=== PATIENT | female | born 2000 | race Two or more races ===

== ENCOUNTER 2025-04-13 02:32 | Inpatient (IN) | payer MEDICAID, OTHER ==
[2025-04-13] VITALS (7 sets, daily range): BP systolic 125–147; BP diastolic 78–93; PULSE 75–104; RESP 16–18; TEMP 97.7–98.7; O2SAT 91–97
[~2025-04-13] VITALS: Ht 172.7 cm; Wt 124.5 kg
--- NOTE | 2025-04-13 02:52 | ED.PDOC ---
GI ASSESSMENT HPI Comments 25-year-old female who came to ER due to abdominal pain. Patient denies any medical problems or any history of abdominal surgery. States since 10:00 a.m. yesterday, epigastric/right upper quadrant abdominal pain with the episodes nausea and vomiting. Patient admits that she started taking Ozempic recently Chief Complaint: Abdominal Pain Time Seen by MD: 02:52 Reviewed Notes: Nurses Notes Allergies: Coded Allergies: NO KNOWN ALLERGIES (Unverified , 04/13/25) Information Source: Patient Mode of Arrival: Ambulatory Timing: Hours Duration: Since onset Past Medical History PAST MEDICAL HISTORY: Denies Surgical History: Denies all surgeries LEGAL INSTRUMENTS EXAMINER History: Denies all LEGAL INSTRUMENTS EXAMINER Hx Family History Family History: Reviewed,noncontributory to illness Social History Smoker: Non-Smoker Alcohol: Denies ETOH Use Drugs: Denies Drug Use Lives In: Home Was a procedure done? Was a procedure done?: No GI differential Dx Differential Diagnosis: Bowel Obstruction, Cholangitis, Cholecystitis, Diverticular disease, Gastritis/PUD, Gastroenteritis, Hepatitis, Inflammatory BD, Pancreatitis, UTI, Urolithiasis X-Ray, Labs, Meds, VS Vital Signs Date Time Temp Pulse Resp B/P (MAP) Pulse Ox O2 Delivery O2 Flow Rate FiO2 04/13/25 02:32 98.2 97 18 149/98 95 98.2 Lab Test 04/13/25 02:46 Range/Units White Blood Count 10.8 4.4-10.8 10^3/uL Red Blood Count 5.80 H 4.0-5.20 10^6/uL Hemoglobin 15.1 12.2-16.2 g/dL Hematocrit 43.7 36.0-46.0 % Mean Corpuscular Volume 75.4 L 80.0-100.0 fL Mean Corpuscular Hemoglobin 26.0 L 28.0-32.0 pg Mean Corpuscular Hemoglobin Concent 34.5 32.0-36.0 g/dL Red Cell Distribution Width 14.4 H 11.8-14.3 % Platelet Count 426 140-450 10^3/uL Mean Platelet Volume 7.5 6.9-10.8 fL Neutrophils (%) (Auto) 75.1 37.0-80.0 % Lymphocytes (%) (Auto) 20.3 10.0-50.0 % Monocytes (%) (Auto) 4.2 0.0-12.0 % Eosinophils (%) (Auto) 0.1 0.0-7.0 % Basophils (%) (Auto) 0.3 0.0-2.0 % Neutrophils # (Auto) 8.1 1.6-8.6 10 ^3/uL Lymphocytes # (Auto) 2.2 0.4-5.4 10 ^3/uL Monocytes # (Auto) 0.5 0-1.3 10 ^3/uL Eosinophils # (Auto) 0 0-0.8 10 ^3/uL Basophils # (Auto) 0 0-0.2 10 ^3/uL Nucleated Red Blood Cells 0.1 % Sodium Level 140 136-145 mmol/L Potassium Level 3.9 3.5-5.1 mmol/L Chloride Level 103 98-107 mmol/L Carbon Dioxide Level 26 20-31 mmol/L Anion Gap 11 5-15 Blood Urea Nitrogen < 5 L 9-23 mg/dL Creatinine 0.79 0.550-1.02 mg/dL Glomerular Filtration Rate Calc 107 >90 mL/min BUN/Creatinine Ratio 6.3 L 10.0-20.0 Serum Glucose 96 74-106 mg/dL Calcium Level 9.7 8.7-10.4 mg/dL Total Bilirubin 2.2 H 0.2-1.0 mg/dL Aspartate Amino Transferase (AST) 335 H 13-40 U/L Alanine Aminotransferase (ALT) 374 H 7-40 U/L Alkaline Phosphatase 88 46-116 U/L Total Protein 7.9 5.7-8.2 g/dL Albumin 4.8 3.2-4.8 g/dL Lipase > 3500 H 12-53 U/L Exam: CT CT AB PEL WO CON-NO ORAL OR IV History: Right upper quadrant abdominal pain Comparison Study: None Technique: Multidetector spiral CT of the abdomen was performed from lung bases to pubic symphysis. Imaging was performed without IV contrast. Axial, coronal and sagittal multiplanar reformats were obtained from the axial data set by the technologist. Radiation Dose : 1. Abdomen/Pelvis: CTDIvol 26.17 mGy, DLP 1872.2 mGy*cm. Findings: Evaluation of solid organs is limited due to lack of intravenous contrast use. Lung Bases: No acute or significant lung base finding. Normal heart size. No pleural or pericardial effusion. Liver: The liver is enlarged, measuring 20.6 cm in craniocaudal dimension. Hepatic steatosis. No focal lesions. Gallbladder and Biliary Tree: Cholelithiasis and moderate gallbladder distention . Spleen: Unremarkable Pancreas: The pancreas is grossly normal in appearance. Adrenal Glands: Unremarkable Kidneys: Kidneys are grossly normal without calculi or hydronephrosis. Bladder: Grossly unremarkable for degree of distention. Bowel: Small sliding-type hiatal hernia. The stomach is grossly normal in appearance. Small bowel and colon are normal in caliber and distribution. The appendix is normal. Ascites: Absent Lymphadenopathy: No mesenteric, retroperitoneal or periportal lymphadenopathy. Abdominal Wall and Mesentery: Unremarkable. Vasculature: The visualized abdominal aorta is normal in size and caliber. Tala luation of abdominal and pelvic vessels is limited due to lack of intravenous contrast. Pelvic Organs: Unremarkable Musculoskeletal: No aggressive focal bony lesions, acute fractures or dislocation. IMPRESSION: 1. Cholelithiasis and moderate gallbladder distention. 2. Hepatomegaly and hepatic steatosis. Radiation optimization: All CT scans at this facility use at least one of these dose optimization techniques: automated exposure control mA and/or kV adjustment per patient size (includes targeted exams where dose is matched to clinical indication) or iterative reconstruction. Time of 1ST Reevaluation: 02:49 Reevaluation 1ST: Unchanged Patient Education/Counseling: Need For Follow Up Family Education/Counseling: Need For Follow Up SEPSIS Sepsis Screen Date sepsis recognized/suspect: Apr 13, 2025 Time Sepsis recognized/suspect: 0232 Recent Procedure: No On Antibiotic Therapy: No Respiratory Rate >20: No Heart Rate >90: Yes Temp<36 C (96.8 F) or >38.3 C: No SBP <90 or MAP <65 mmHG: No New Acute Mental Status Change: No Is the patient on CPAP, BIPAP,: No Physician Orders Ct Ab Pel Wo Con-No Oral Or Iv (04/13/25 02:42) Sodium Chloride 0.9% (04/13/25 04:15) Sodium Chloride 0.9% (04/13/25 04:15) Npo Except Ice Chips (04/13/25 04:06) Saline Lock (04/13/25 04:06) Npo (Nothing By Mouth) Diet (04/13/25 Breakfast) Ondansetron Hcl (Zofran) (04/13/25 04:15) Ketorolac Injection (Toradol Injection) (04/13/25 04:15) Vital Signs Date Time Temp Pulse Resp B/P (MAP) Pulse Ox O2 Delivery O2 Flow Rate FiO2 04/13/25 02:32 98.2 97 18 149/98 95 98.2 Laboratory Tests Test 04/13/25 02:46 White Blood Count 10.8 10^3/uL (4.4-10.8) Departure 1 Departure Time of Disposition: 04:08 Impression: Primary Impression: Acute pancreatitis Disposition: ADMITTED INPATIENT Condition: Stable Comments IV FLUIDS AND ANALGESICS ADMINISTERED IN THE ED PATIENT KEPT NPO PATIENT ADMITTED TO HOSPITALIST SERVICE FOR FURTHER TREATMENT, EVALUATION AND MONITORING. Extensive evaluation was performed in attempt to identify or rule out: (See differential diagnosis section) The following tests were ordered, and results were reviewed by me and discussed with patient: (See diagnostic results section) Decision regarding hospitalization or escalation of hospital level of care: Risk and benefits of admission for further treatment of patient's condition was considered. Due to patient's current clinical condition, high risk of decline and poor outcome if discharged and need for further inpatient management and monitoring, patient will be admitted to the hospital. Discussed with patient. Critical Care Note Critical Care Time?: No Stability Stability form required: No Heart Score Heart Score: Heart Score Response (Comments) Value History N/A 0 EKG N/A 0 Age N/A 0 Risk Factors N/A 0 Troponin N/A 0 Total 0 I personally scribed for KEO SPARROW MD ([email or web address]) on 04/13/25 at 02:52. Electronically submitted by Suleman Hernandez ([email or web address]). I personally scribed for KEO SPARROW MD ([email or web address]) on 04/13/25 at 03:42. Electronically submitted by Suleman Hernandez ([employer]). KEO SPARROW MD Apr 13, 2025 02:52
[2025-04-13 03:04] LABS: Hemoglobin 15.1 g/dL (12.2-16.2); Nucleated Red Blood Cells % 0.1 %
[2025-04-13 03:06] LABS: Hematocrit 43.7 % (36.0-46.0); Mean Corpuscular Hemoglobin 26.0 pg (28.0-32.0); Mean Corpuscular Volume 75.4 fL (80.0-100.0)
[2025-04-13 03:22] LABS: Alkaline Phosphatase 88 U/L (46-116); Anion Gap 11 (5-15); Calcium 9.7 mg/dL (8.7-10.4); Carbon Dioxide 26 mmol/L (20-31); Chloride 103 mmol/L (98-107); Glucose 96 mg/dL (74-106); Potassium 3.9 mmol/L (3.5-5.1); Sodium 140 mmol/L (136-145); Total Protein 7.9 g/dL (5.7-8.2)
[2025-04-13 03:30] LABS: Alanine Aminotransferase 374 U/L (7-40); Albumin 4.8 g/dL (3.2-4.8); BUN/Creatinine Ratio 6.3 (10.0-20.0); Bilirubin, Total 2.2 mg/dL (0.2-1.0); Blood Urea Nitrogen < 5 mg/dL (9-23); Lipase > 3500 U/L (12-53)
--- NOTE | 2025-04-13 03:33 | DVH ---
Exam: CT CT AB PEL WO CON-NO ORAL OR IV History: Right upper quadrant abdominal pain Comparison Study: None Technique: Multidetector spiral CT of the abdomen was performed from lung bases to pubic symphysis. I maging was performed without IV contrast. Axial, coronal and sagittal multiplanar reformats were obta ined from the axial data set by the technologist. Radiation Dose : 1. Abdomen/Pelvis: CTDIvol 26.17 mGy, DLP 1872.2 mGy*cm. Findings: Evaluation of solid organs is limited due to lack of intravenous contrast use. Lung Bases: No acute or significant lung base finding. Normal heart size. No pleural or pericardial effusion. Liver: The liver is enlarged, measuring 20.6 cm in craniocaudal dimension. Hepatic steatosis. No foca l lesions. Gallbladder and Biliary Tree: Cholelithiasis and moderate gallbladder distention. Spleen: Unremarkable Pancreas: The pancreas is grossly normal in appearance. Adrenal Glands: Unremarkable Kidneys: Kidneys are grossly normal without calculi or hydronephrosis. Bladder: Grossly unremarkable for degree of distention. Bowel: Small sliding-type hiatal hernia. The stomach is grossly normal in appearance. Small bowel and colon are normal in caliber and distribution. The appendix is normal. Ascites: Absent Lymphadenopathy: No mesenteric, retroperitoneal or periportal lymphadenopathy. Abdominal Wall and Mesentery: Unremarkable. Vasculature: The visualized abdominal aorta is normal in size and caliber. Evaluation of abdominal a nd pelvic vessels is limited due to lack of intravenous contrast. Pelvic Organs: Unremarkable Musculoskeletal: No aggressive focal bony lesions, acute fractures or dislocation. IMPRESSION: 1. Cholelithiasis and moderate gallbladder distention. 2. Hepatomegaly and hepatic steatosis. Radiation optimization: All CT scans at this facility use at least one of these dose optimization jeevan hniques: automated exposure control mA and/or kV adjustment per patient size (includes targeted exam s where dose is matched to clinical indication) or iterative reconstruction.
[2025-04-13] MEDS: SODIUM CHLORIDE 0.9% 1,000 ML IV ONE ×2 (04:15→10:20)
[2025-04-13] MEDS: ONDANSETRON HCL 4 MG/2 ML VIAL IV ONE (04:20)
[2025-04-13] MEDS: KETOROLAC TROMETH 30 MG/ML 1ML VIAL IV ONE (04:30)
--- NOTE | 2025-04-13 05:16 | DVHHPRES ---
History of Present Illness Resident Creating Document: OTF BRITO RESIDENT History of Present Illness Yfn Buck is a 25 year old female with no significtant past medical history came to the ER with chief complaints of diffuse abdominal pain mostly in the epigastric region which is 10/10 in intensity, radiating to the left shoulder, relieved with leaning forward, aggravated on lying flat associated with sweating, nausea, vomiting since yesterday morning. Patient states that she has intermittent pain since 2-3 months, associated with vomiting since 1 month. [place]en [place] states she has been taking Ozempic for the last year. Patient states that she takes omeprazole for heartburn. Patient denies any chest pain, shortness of breath, dysuria, diarrhea, constipation, fever, chills. Patient on arrival had hypertension, and elevated lipase levels. Patient is admitted for further management. Surgical history: Denies Family history: Reviewed noncontributory Social history: Denies smoking, drinking, drug use Lives with: Family PCP: Dr. Frank Review of Systems Constitutional: Yes: Sweats; No: Fever, Chills, Weakness, Malaise, Other Eyes: No: Pain, Vision change, Conjunctivae inflammation, Eyelid inflammation, Other, Redness ENT: No: Ear pain, Ear discharge, Nose pain, Nose discharge, Nose congestion, Mouth pain, Mouth swelling, Throat pain, Throat swelling, Other Respiratory: No: Cough, Dry, Shortness of breath, SOB with excertion, Wheezing, Hemoptysis, Pleuritic Pain, Sputum, Wheezing, Other Cardiovascular: No: Chest Pain, Palpitations, Orthopnea, Paroxysmal Noc. Dyspnea, Edema, Lt Headedness, Other Gastrointestinal: Nausea, Vomiting, Abdominal Pain; No: Diarrhea, Constipation, Melena, Hematochezia, Other Genitourinary: No Dysuria, No Frequency, No Incontinence, No Hematuria, No Retention, No Other Musculoskeletal: No: other, neck pain, shoulder pain, arm pain, back pain, hand pain, leg pain, foot pain Skin: No: Rash, Lesions, Jaundice, Bruising, Other Neurological: No: Weakness, Numbness, Incoordination, Change in speech, Confusi on, Seizures, Other Allergies: Coded Allergies: NO KNOWN ALLERGIES (Unverified , 04/13/25) Medications Current Medications Medications Dose Ordered Sig/Humza Route Start Time Stop Time Status Last Admin Dose Admin Ondansetron HCl 4 mg Q4HP PRN IV 04/13/25 04:45 Morphine Sulfate 2 mg Q4HPRN PRN IV 04/13/25 04:45 Exam Vital Signs Vital Signs Date Time Temp Pulse Resp B/P (MAP) Pulse Ox O2 Delivery O2 Flow Rate FiO2 04/13/25 04:40 87 17 97 Room Air* 0 21 04/13/25 04:39 97.3 108/75 (86) 97.3 Exam General Appearance: Alert, Oriented X3, Cooperative, No acute distress HEENT: Atraumatic, PERRLA, EOMI, Mucous membrane moist/pink Respiratory: Clear to auscultation, Normal air movement Cardiovascular: Regular rate, Normal S1, Normal S2, No murmurs, no chest wall tenderness Abdominal: Diffuse abdominal pain mostly in the epigastric region, negative Kang sign Extremities: No clubbing, No cyanosis, No edema, Normal pulses, No tenderness/swelling Skin: No rashes, No breakdown, No significant lesion Neuro: Normal gait, Normal speech, Strength at 5/5 X4 ext, Normal tone, Sensation intact, Cranial nerves 3-12 NL, Reflexes 2+ Psych/Mental Status: Mental status NL, Mood NL Labs/Xrays Labs Test 04/13/25 02:46 Range/Units White Blood Count 10.8 4.4-10.8 10^3/uL Red Blood Count 5.80 H 4.0-5.20 10^6/uL Hemoglobin 15.1 12.2-16.2 g/dL Hematocrit 43.7 36.0-46.0 % Mean Corpuscular Volume 75.4 L 80.0-100.0 fL Mean Corpuscular Hemoglobin 26.0 L 28.0-32.0 pg Mean Corpuscular Hemoglobin Concent 34.5 32.0-36.0 g/dL Red Cell Distribution Width 14.4 H 11.8-14.3 % Platelet Count 426 140-450 10^3/uL Mean Platelet Volume 7.5 6.9-10.8 fL Neutrophils (%) (Auto) 75.1 37.0-80.0 % Lymphocytes (%) (Auto) 20.3 10.0-50.0 % Monocytes (%) (Auto) 4.2 0.0-12.0 % Eosinophils (%) (Auto) 0.1 0.0-7.0 % Basophils (%) (Auto) 0.3 0.0-2.0 % Neutrophils # (Auto) 8.1 1.6-8.6 10 ^3/uL Lymphocytes # (Auto) 2.2 0.4-5.4 10 ^3/uL Monocytes # (Auto) 0.5 0-1.3 10 ^3/uL Eosinophils # (Auto) 0 0-0.8 10 ^3/uL Basophils # (Auto) 0 0-0.2 10 ^3/uL Nucleated Red Blood Cells 0.1 % Sodium Level 140 136-145 mmol/L Potassium Level 3.9 3.5-5.1 mmol/L Chloride Level 103 98-107 mmol/L Carbon Dioxide Level 26 20-31 mmol/L Anion Gap 11 5-15 Blood Urea Nitrogen < 5 L 9-23 mg/dL Creatinine 0.79 0.550-1.02 mg/dL Glomerular Filtration Rate Calc 107 >90 mL/min BUN/Creatinine Ratio 6.3 L 10.0-20.0 Serum Glucose 96 74-106 mg/dL Calcium Level 9.7 8.7-10.4 mg/dL Total Bilirubin 2.2 H 0.2-1.0 mg/dL Aspartate Amino Transferase (AST) 335 H 13-40 U/L Alanine Aminotransferase (ALT) 374 H 7-40 U/L Alkaline Phosphatase 88 46-116 U/L Total Protein 7.9 5.7-8.2 g/dL Albumin 4.8 3.2-4.8 g/dL Lipase > 3500 H 12-53 U/L SEPSIS Sepsis Screen Date sepsis recognized/suspect: Apr 13, 2025 Time Sepsis recognized/suspect: 044 Recent Procedure: No On Antibiotic Therapy: No Respiratory Rate >20: No Heart Rate >90: No Temp<36 C (96.8 F) or >38.3 C: No SBP <90 or MAP <65 mmHG: No New Acute Mental Status Change: No Is the patient on CPAP, BIPAP,: No Physician Orders Ct Ab Pel Wo Con-No Oral Or Iv (04/13/25 02:42) Sodium Chloride 0.9% (04/13/25 04:15) Npo Except Ice Chips (04/13/25 04:06) Saline Lock (04/13/25 04:06) Npo (Nothing By Mouth) Diet (04/13/25 Breakfast) Urinalysis (04/13/25 04:08) Test, Urine (04/13/25 04:08) Admit (04/13/25 04:39) Allergies (04/13/25 04:39) Code Status (04/13/25 04:39) Ondansetron Hcl (Zofran) (04/13/25 04:45) Condition: Serious (04/13/25 04:39) Bedrest With Bathroom Privileg (04/13/25 04:39) Morphine Sulfate Injection (04/13/25 04:45) Drug Screen (04/13/25 04:58) PTPTT (04/13/25 04:59) Vital Signs Date Time Temp Pulse Resp B/P (MAP) Pulse Ox O2 Delivery O2 Flow Rate FiO2 04/13/25 04:40 87 17 97 Room Air* 0 21 04/13/25 04:39 97.3 87 17 108/75 (86) 97 97.3 04/13/25 02:32 98.2 97 18 149/98 95 98.2 Laboratory Tests Test 04/13/25 02:46 White Blood Count 10.8 10^3/uL (4.4-10.8) Medications Medications Dose Ordered Sig/Humza Route Start Time Stop Time Status Last Admin Dose Admin Ketorolac Tromethamine 15 mg ONCE ONCE IV 04/13/25 04:15 04/13/25 04:16 DC 04/13/25 04:30 15 MG Ondansetron HCl 4 mg ONCE ONCE IV 04/13/25 04:15 04/13/25 04:16 DC 04/13/25 04:20 4 MG Sodium Chloride 1,000 ml @ 2,000 mls/hr Q30M ONCE IV 04/13/25 04:15 04/13/25 04:44 DC 04/13/25 04:15 2,000 MLS/HR Assessment/Plan Assessment/Plan Assessment and plan # Intractable abdominal pain due to acute pancreatitis # cholelithiasis # hepatic steatosis # hepatomegaly # hyperbilirubinemia with transaminitis - CT abdomen showed Cholelithiasis and moderate gallbladder distention. Hepatomegaly and hepatic steatosis. - IV fluids - IV morphine - omeprazole - elevated lipase levels - liver ultrasound ordered, pending - patient kept NPO ? Diabetes mellitus - patient taking Ozempic PPI prophylaxis: Protonix NPO Goals of care discussed with patient for 30 murmurs: Full code Case discussed with Dr. Jordan, Nurse Plan discussed with: Patient My Orders Orders - OTF BRITO RESIDENT Procedure Category Date Status Time Admit ADMIT 04/13/25 Transmitted 04:39 Allergies MARINO 04/13/25 In Process 04:39 Code Status CODE 04/13/25 Transmitted 04:39 Ondansetron Hcl PHA 04/13/25 In Process (Zofran) 04:45 Condition: Serious MARINO 04/13/25 In Process 04:39 Bedrest With Bathroom MARINO 04/13/25 In Process Privileg 04:39 Morphine Sulfate PHA 04/13/25 In Process Injection 04:45 Drug Screen LAB 04/13/25 Logged 04:58 PTPTT LAB 04/13/25 In Process 04:59 Date of Service: Apr 13, 2025 Billing Provider: ADRIÁN JORDAN MD Common Visit Codes: 33422-ZPMJJQS INP/OBS CARE (HIGH) Secondary Visit Codes: 11177-ZBBJTKIS CARE PLAN 30 MINUTES OTF BRITO Apr 13, 2025 05:16
[2025-04-13 05:33] LABS: INR 0.97 (0.9-1.15); Partial Thromboplastin Time 28.2 SEC (24.5-34.5); Prothrombin Time 10.3 sec (9.3-11.8)
[2025-04-13] MEDS: MORPHINE SULFATE INJ 2 MG/ml SYRG IV PRN (05:44)
[2025-04-13 06:48] LABS: Albumin 4.6 g/dL (3.2-4.8); Alkaline Phosphatase 85 U/L (46-116); Anion Gap 10 (5-15); BUN/Creatinine Ratio 6.7 (10.0-20.0); Calcium 9.3 mg/dL (8.7-10.4); Carbon Dioxide 27 mmol/L (20-31); Chloride 104 mmol/L (98-107); Cholesterol 197 mg/dL (< 200); HDL Cholesterol 54 mg/dL (40-59); Potassium 4.0 mmol/L (3.5-5.1); Sodium 141 mmol/L (136-145); Total Protein 7.5 g/dL (5.7-8.2)
[2025-04-13 06:51] LABS: INR 1.01 (0.9-1.15); Partial Thromboplastin Time 24.7 SEC (24.5-34.5); Prothrombin Time 10.7 sec (9.3-11.8)
[2025-04-13 06:53] LABS: Alanine Aminotransferase 419 U/L (7-40); Bilirubin, Total 2.6 mg/dL (0.2-1.0); Blood Urea Nitrogen 6 mg/dL (9-23); Glucose 124 mg/dL (74-106)
[2025-04-13 06:54] LABS: Triglycerides 171 mg/dL (< 150)
--- NOTE | 2025-04-13 09:16 | DVH ---
INDICATION: pancreatitis TECHNIQUE: Multiple real-time sonographic images of the abdomen were obtained. COMPARISON: None FINDINGS: The liver is heterogeneous in echogenicity. The liver measures 18cm. No intrahepatic bilia ry ductal dilatation is noted. The gallbladder wall measures 0.4 cm and is unremarkable. No gallstones or sludge is seen. The commo n duct measures 0.7 cm and is unremarkable. No pericholecystic fluid is noted. The right kidney measures 11cm. No hydronephrosis. The left kidney measures cm. No hydronephrosis. The pancreas is not well visualized due to obscuration from bowel gas. The visualized portions of the IVC and aorta are grossly unremarkable. IMPRESSION: Gallstones with gallbladder wall thickening. Acute cholecystitis can not be excluded. Free fluid around the pancreatic head. Pancreatitis not excluded. Hepatic steatosis/hepatomegaly.
[2025-04-13] MEDS: ONDANSETRON HCL 4 MG/2 ML VIAL IV PRN (10:11)
[2025-04-13] MEDS: PANTOPRAZOLE 40 MG/10 ML VIAL INJ IV SCH (10:19)
[2025-04-13] MEDS: ENOXAPARIN SOD 40 MG/0.4 ML SYRINGE SC SCH (10:20)
[2025-04-13 10:55] LABS: Opiate Scree,Urine Neg (NEGATIVE)
[2025-04-13 10:58] LABS: Amphetamine Screen, Urine Neg (NEGATIVE); Barbiturate Scree,Urine Neg (NEGATIVE); Benzodiazephine Screen, Urine Neg (NEGATIVE); Cannabinoid Screen, Urine Neg (NEGATIVE); Cocaine Screen, Urine Neg (NEGATIVE); Phencyclidine Screen, Urine Neg (NEGATIVE)
[2025-04-13 10:59] LABS: Urine Protein, UAD Negative (Negative)
[2025-04-13] MEDS: LACTATED RINGER'S 1,000 ML IV SCH (12:21)
--- NOTE | 2025-04-13 12:59 | DVHPNRES ---
Progress Note Date Seen: Apr 13, 2025 Resident Creating Document: SAGE POST RESIDENT Medical Necessity Reason Pt with a Central, PICC or Fol: No Subjective Review of Systems Yfn Buck is a 25-year-old female with no significant past medical history who came to the ER with chief complaint of diffuse abdominal pain since 1 day. Patient mentions that the pain was mostly in the epigastric area, 10/10 in intensity radiating to the left shoulder slightly reduced on sitting up and leaning forward. The patient describes the pain as soreness. She also complained of nausea and 3 episodes of vomiting yesterday. She states that she only drank water and could not keep anything down. She mentions she has had similar symptoms of abdominal pain and vomiting multiple times in the last 1 year, which she thought was just heartburn and would take omeprazole for it. Patient started taking Ozempic since 1 year. She denies any fever and chills. She has no history of gallstones or decreased appetite the last few months. Past medical history: Prediabetes Past surgical history: None Social & Personal history: Lives at home with brother Smoking: Denies Alcohol: Rare consumption Drugs: Denies Allergies: No known allergies Patient seen and examined at bedside. Patient is alert and oriented to time, place person and responding to all questions. Patient is in mild distress due to abdominal pain. Eyes: No Pain, No Vision change, No Conjunctivae inflammation, No Eyelid inflammation, No Redness ENT: No Ear pain, No Ear discharge, No Nose pain, No Nose discharge, No Nose congestion, No Mouth pain, No Mouth swelling, No Throat pain, No Throat swelling Cardiovascular: No Chest Pain, No Palpitations, No Orthopnea, No Paroxysmal No Dyspnea, No Edema, No Lt Headedness Respiratory: No Cough, No Dry, No Shortness of breath, No SOB with exertion, No Wheezing, No Hemoptysis, No Pleuritic Pain, No Sputum Gastrointestinal: Nausea, No Vomiting, Abdominal Pain, No Diarrhea, No Constipation, No Melena, No Hematochezia Genitourinary: No Dysuria, No Frequency, No Incontinence, No Hematuria, No Retention Objective vital signs Vital Sign Date Time Temp Pulse Resp B/P (MAP) Pulse Ox O2 Delivery O2 Flow Rate FiO2 04/13/25 12:24 100 18 139/85 04/13/25 09:37 98.7 94 98.7 04/13/25 04:40 Room Air* 0 21 medications Current Medications Medications Dose Ordered Sig/Humza Route Start Time Stop Time Status Last Admin Dose Admin Ondansetron HCl 4 mg Q4HP PRN IV 04/13/25 04:45 04/13/25 10:11 4 MG Morphine Sulfate 2 mg Q4HPRN PRN IV 04/13/25 04:45 04/13/25 10:12 2 MG Lactated Ringer's 1,000 ml @ 180 mls/hr Q5H34M IV 04/13/25 05:15 04/13/25 12:21 180 MLS/HR Pantoprazole Sodium 40 mg DAILY IV 04/13/25 10:00 04/13/25 10:19 40 MG Enoxaparin Sodium 40 mg DAILY SC 04/13/25 10:00 04/13/25 10:20 40 MG Ceftriaxone Sodium 50 ml @ 100 mls/hr DAILY@09 IV 04/14/25 09:00 UNV Metronidazole 100 ml @ 100 mls/hr Q8HR IV 04/13/25 14:00 UNV Examination General Appearance: Cooperative. Well developed. Well nourished. NAD. Patient is in mild distress due to abdominal pain. Head Exam: Normal inspection Neck Exam: Normal inspection. Non-tender. Normal alignment Pulmonary/Respiratory: Chest non-tender. Clear bilateral breath sounds, no crackles, no wheezing. Cardiovascular/Chest: Regular rate and rhythm. No murmurs. No JVD. Peripheral Pulses: 2+ Radial (R). 2+ Radial (L). 2+ Pedal (R). 2+ Pedal (L) Abdominal Exam: Normal bowel sounds. Soft. obese abdomen, no visible veins, d iffuse abdominal tenderness, more pronounced in the epigastric area, No hepatospenomegaly. No masses Ankle Exam: Negative ankle edema Lower extremities: Negative lower extremity edema Neuro/Mental Status: A&O x4. Coherent. Thoughts/Psych: Normal thought pattern. Appropriate mood and affect. Good judgement and insight Skin Exam: Normal inspection. Normal color. Warm. Dry laboratory and microbiology Laboratory Tests 04/13/25 06:04 04/13/25 02:46 Test 04/13/25 06:04 Range/Units Serum Glucose 124 H 74-106 mg/dL Labs and/or images reviewed: Labs reviewed by me, Image(s) reviewed by me Problem List/Assessment/Plan Problem List/Assessment/Plan Acute pancreatitis likely gallstone induced Gallbladder stones Biliary obstruction Hyperbilirubinemia with transaminitis Hepatic steatosis Hepatomegaly -CT abdomen pelvis showed cholelithiasis and moderate gallbladder distention, hepatomegaly and hepatic steatosis -Liver Ultrasound showed Gallstones with gallbladder wall thickening. Acute cholecystitis can not be excluded. Free fluid around the pancreatic head. Pancreatitis not excluded. Hepatic steatosis/hepatomegaly. -MRCP showed Extensive peripancreatic edema and stranding consistent with acute pancreatitis. The edema extends into the retroperitoneum, inferior abdomen, paracolic gutters. This is new since this morning examination. Cholelithiasis and pericholecystic edema. -keep NPO -lipase 3500 -GI consult -pain management -surgical consult -recommended lap cholecystectomy tomorrow am Prediabetes HbA1c 5.6 The patient is on Ozempic Educate patient about healthy food habits Obesity, class 3, BMI 40.8 Educated patient on the need for weight reduction with healthy lifestyle modifications and diet changes PUD prophylaxis: Protonix DVT prophylaxis: Lovenox Goals of care: Full code, discussed for >23 minutes Plan discussed with patient Plan discussed with Dr. Gonsales Plan discussed with: Patient My Orders My Orders Orders - SAGE POST RESIDENT Procedure Category Date Status Time Enoxaparin Sodium PHA 04/13/25 In Process (Lovenox) 10:00 Ceftriaxone 1gm/50ml PHA 04/14/25 Logged (Rocephin) 09:00 Metronidazole PHA 04/13/25 Logged 500mg/100ml (Flagyl 14:00 * Gi D[facility] [employer]ment [employer]oper CONS 04/13/25 Transmitted 10:58 * Surgical Consult CONS 04/13/25 Transmitted Mrcp Mri MRI 04/13/25 Taken 10:58 SAGE POST RESIDENT Apr 13, 2025 12:59 NORMA DIAZ RESIDENT Apr 13, 2025 16:27
--- NOTE | 2025-04-13 13:10 | DVH ---
PROCEDURE: MRI MRCP MRI Indication: acute cholecystitis/choledocholithiasis COMPARISON: 04/13/2025 TECHNIQUE: Multiplanar multisequence images of the abdomen are obtianed per MRCP protocol. FINDINGS: Adrenal glands unremarkable. Extensive peripancreatic edema extending into the retroperitoneum, lower abdomen, paracolic gutters. Cholelithiasis. Pericholecystic edema. No T2 hyperintense lesions within the liver. Normal caliber c ommon bile duct measuring 4 mm. No definitive choledocholithiasis identified. Pancreatic duct nonvis ualized, is nondilated. Hepatosplenomegaly. Kidneys demonstrate no hydronephrosis. Stomach is partially distended. Small bowel loops are normal in caliber. IMPRESSION: Extensive peripancreatic edema and stranding consistent with acute pancreatitis. The edema extends in to the retroperitoneum, inferior abdomen, paracolic gutters. This is new since this morning examinati on Cholelithiasis and pericholecystic edema. No evidence for choledocholithiasis. Normal caliber common bile duct.
[2025-04-13] MEDS: ACETAMINOPHEN 325 MG TAB PO SCH (13:30)
--- NOTE | 2025-04-13 13:39 | DVHINCON2 ---
Consultation - Surgical Date Seen: Apr 13, 2025 Referring Physician Reason for Consultation Gallstone pancreatitis History of Present Illness History of Present Illness Mrs. Buck is a 25-year-old female who presented to the ED with epigastric abdominal pain that radiates to the left side of the abdomen, that has been present since yesterday at 10:00 a.m.. States that she has had this pain before but never this bad. Her 1st episode was approximately 2 months ago and since then she has had approximately 5 episodes. States that the pain episodes are triggered by eating greasy spicy foods. Denies any associated nausea or vomiting. Denies acholic stools, fevers, chills, history of pancreatitis, changes in urinary or stooling habits. Patient is on Ozempic weekly last dose was on Wednesday. Past Medical/Surgical History Past Medical/Surgical History PMH morbid obesity, cholelithiasis PSH denies Family and Social History Family and Social History Noncontributory ETOH/T Ob/drugs denies Allergies and medications Allergies: Coded Allergies: NO KNOWN ALLERGIES (Unverified , 04/13/25) Review of systems Review of Systems: HEENT:Normal, CVS:Normal, RESPIRATORY:Normal, GI:Abnormal (See HPI), :Normal, MSK:Normal, NEURO:Normal Examination Vital signs Vital Signs Date Time Temp Pulse Resp B/P (MAP) Pulse Ox O2 Delivery O2 Flow Rate FiO2 04/13/25 12:58 97.7 104 18 139/85 (103) 91 97.7 04/13/25 04:40 Room Air* 0 21 Medications Current Medications Medications (Trade) Dose Ordered Sig/Humza Route PRN Reason Start Time Stop Time Status Last Admin Ondansetron HCl (Zofran) 4 mg Q4HP PRN IV NAUSEA / VOMITING 04/13/25 04:45 04/13/25 10:11 Morphine Sulfate 2 mg Q4HPRN PRN IV SEVERE PAIN (7-10 PAIN SCALE) 04/13/25 04:45 04/13/25 10:12 Lactated Ringer's 1,000 ml @ 180 mls/hr Q5H34M IV 04/13/25 05:15 04/13/25 12:21 Pantoprazole Sodium (Protonix) 40 mg DAILY IV 04/13/25 10:00 04/13/25 10:19 Enoxaparin Sodium (Lovenox) 40 mg DAILY SC 04/13/25 10:00 04/13/25 10:20 Ceftriaxone Sodium 50 ml @ 100 mls/hr DAILY@09 IV 04/14/25 09:00 UNV Metronidazole 100 ml @ 100 mls/hr Q8HR IV 04/13/25 14:00 UNV Laboratory Labs Test 04/13/25 06:04 04/13/25 05:15 04/13/25 02:46 Range/Units Prothrombin Time 10.7 9.3-11.8 sec Prothrombin Time INR 1.01 0.9-1.15 Activated Partial Thromboplast Time 24.7 24.5-34.5 SEC D-Dimer, Quantitative 1.05 H 0.0-0.49 mg/L FEU Sodium Level 141 136-145 mmol/L Potassium Level 4.0 3.5-5.1 mmol/L Chloride Level 104 98-107 mmol/L Carbon Dioxide Level 27 20-31 mmol/L Anion Gap 10 5-15 Blood Urea Nitrogen 6 L 9-23 mg/dL Creatinine 0.89 0.550-1.02 mg/dL Glomerular Filtration Rate Calc 93 >90 mL/min BUN/Creatinine Ratio 6.7 L 10.0-20.0 Serum Glucose 124 H 74-106 mg/dL Lactic Acid Level 1.6 0.4-2.0 mmol/L Calcium Level 9.3 8.7-10.4 mg/dL Total Bilirubin 2.6 H 0.2-1.0 mg/dL Direct Bilirubin 1.6 H <0.3 mg/dL Aspartate Amino Transferase (AST) 359 H 13-40 U/L Alanine Aminotransferase (ALT) 419 H 7-40 U/L Alkaline Phosphatase 85 46-116 U/L Troponin I High Sensitivity < 3 L </=34 ng/L B-Type Natriuretic Peptide 7.42 0-100 pg/mL Total Protein 7.5 5.7-8.2 g/dL Albumin 4.6 3.2-4.8 g/dL Triglycerides Level 171 H < 150 mg/dL Cholesterol Level 197 < 200 mg/dL LDL Cholesterol 127 H < 100 mg/dL HDL Cholesterol 54 40-59 mg/dL Beta HCG, Quantitative < 0.0 L 1.5-4.2 mIU/mL Plasma/Serum Blood Alcohol < 3.0 <10 mg/dL Urine Color Yellow Yellow Urine Clarity Clear Clear Urine pH 5.0 5.0-9.0 Urine Specific [place] 1.011 1.001-1.035 Urine Protein Negative Negative Urine Ketones Negative Negative Urine Blood Negative Negative /uL Urine Nitrite Negative Negative Urine Bilirubin 1+ H Negative Urine Urobilinogen Normal Negative mg/dL Urine Leukocyte Esterase Negative Negative /uL Urine RBC <1 0 - 4 /hpf Urine Microscopic WBC 1 0-5 /HPF Urine Squamous Epithelial Cells Few <5 /hpf Urine Bacteria None seen None Seen /hpf Urine Glucose Normal Normal mg/dL Urine Test Negative Negative Urine Opiates Screen Neg NEGATIVE Urine Fentanyl Screen Neg NEGATIVE Urine Barbiturates Screen Neg NEGATIVE Urine Phencyclidine Screen Neg NEGATIVE Urine Amphetamines Screen Neg NEGATIVE Urine Benzodiazepines Screen Neg NEGATIVE Urine Cocaine Screen Neg NEGATIVE Urine Cannabinoids Screen Neg NEGATIVE White Blood Count 10.8 4.4-10.8 10^3/uL Red Blood Count 5.80 H 4.0-5.20 10^6/uL Hemoglobin 15.1 12.2-16.2 g/dL Hematocrit 43.7 36.0-46.0 % Mean Corpuscular Volume 75.4 L 80.0-100.0 fL Mean Corpuscular Hemoglobin 26.0 L 28.0-32.0 pg Mean Corpuscular Hemoglobin Concent 34.5 32.0-36.0 g/dL Red Cell Distribution Width 14.4 H 11.8-14.3 % Platelet Count 426 140-450 10^3/uL Mean Platelet Volume 7.5 6.9-10.8 fL Neutrophils (%) (Auto) 75.1 37.0-80.0 % Lymphocytes (%) (Auto) 20.3 10.0-50.0 % Monocytes (%) (Auto) 4.2 0.0-12.0 % Eosinophils (%) (Auto) 0.1 0.0-7.0 % Basophils (%) (Auto) 0.3 0.0-2.0 % Neutrophils # (Auto) 8.1 1.6-8.6 10 ^3/uL Lymphocytes # (Auto) 2.2 0.4-5.4 10 ^3/uL Monocytes # (Auto) 0.5 0-1.3 10 ^3/uL Eosinophils # (Auto) 0 0-0.8 10 ^3/uL Basophils # (Auto) 0 0-0.2 10 ^3/uL Nucleated Red Blood Cells 0.1 % Hemoglobin A1c 5.6 <5.7 % A1C Lipase > 3500 H 12-53 U/L Examination: GENERAL:Normal, HEENT:Normal (No scleral icterus), ABDOMEN:Normal (Nondistended, no scars, no hernias, soft, depressible, exquisite epigastric tenderness, left upper quadrant tenderness, negative Kang's, no rebound, no guarding) Problem List/Assessment/Plan Problems: (1) Acute gallstone pancreatitis Assessment and Plan Ms. Buck is a 25-year-old female who presented with gallstone pancreatitis, as evidenced by lipase over 3500 with exquisite epigastric tenderness. CT was reviewed it shows distended gallbladder with the stones in the lumen. Ult rasound was reviewed and is shows gallstones within the gallbladder wall lumen, no gallbladder wall thickening, no pericholecystic fluid. Ultrasound also shows some fluid around the pancreas, which is due to the pancreatic inflammation. Presentation patient also had elevated total bilirubin level to 2.6, I ordered direct bilirubin level (still pending). MRCP was done and I did not see any choledocholithiasis, still waiting on the official radiology read. I discussed the findings with the patient and offered laparoscopic cholecystectomy, given that patients have a 80% risk of redeveloping pancreatitis within 2 months of being discharged from an episode of gallstone pancreatitis. I also discussed the possibility of performing a intraoperative cholangiogram if her bilirubin levels continue to increase by tomorrow morning's labs. Procedure, risks, benefits, complications and alternatives were discussed with the patient. Patient agrees with surgical plan. 1. Scheduled for laparoscopic cholecystectomy, possible open, possible intraoperative cholangiogram tomorrow a.m. 2. NPO at midnight 3. Aggressive fluid hydration due to pancreatitis, goal urine output is 1 to 2 mL per kg per hour 4. Pain control, added [place] 5 for moderate pain, [place] 10 for severe pain, Tylenol and ibuprofen for baseline pain control 5. Avoid morphine as this affects the sphincter of Oddi and can make pancreatitis worse 6. A.m. labs ordered: CBC, CMP, direct bilirubin level Plan discussed with Plan discussed with: Patient Visit Coding Surgery Date of Service if different f: Apr 13, 2025 Billing Provider: LINCOLN GOEL MD Surgery Visit Codes: 16010 - INP CONSULT <110 MIN LINCOLN GOEL MD Apr 13, 2025 13:39
[2025-04-13] MEDS: IBUPROFEN 600 MG TAB PO SCH (14:00)
--- NOTE | 2025-04-13 15:02 | DVHINCON2 ---
Date of service: Apr 13, [address] Sorenson Reason for Consultation Acute pancreatitis History of Present Illness Mrs. Buck is a 25-year-old female who presented to the ED with epigastric abdominal pain that radiates to the left side of the abdomen, that has been present since yesterday at 10:00 a.m.. States that she has had this pain before but never this bad. Her 1st episode was approximately 2 months ago and since then she has had approximately 5 episodes. States that the pain episodes are triggered by eating greasy spicy foods. Denies any associated nausea or vomiting. Denies acholic stools, fevers, chills, history of pancreatitis, changes in urinary or stooling habits. Patient is on Ozempic weekly for about a last dose was on Wednesday. She denies smoking or drinking alcohol or any substance abuse Past Medical History PMH morbid obesity, cholelithiasis PSH denies Allergies: Coded Allergies: NO KNOWN ALLERGIES (Unverified , 04/13/25) Current Medications Current Medications Medications (Trade) Dose Ordered Sig/Humza Route PRN Reason Start Time Stop Time Status Last Admin Ondansetron HCl (Zofran) 4 mg Q4HP PRN IV NAUSEA / VOMITING 04/13/25 04:45 04/13/25 10:11 Morphine Sulfate 2 mg Q4HPRN PRN IV SEVERE PAIN (7-10 PAIN SCALE) 04/13/25 04:45 Hold 04/13/25 10:12 Lactated Ringer's 1,000 ml @ 180 mls/hr Q5H34M IV 04/13/25 05:15 04/13/25 12:21 Pantoprazole Sodium (Protonix) 40 mg DAILY IV 04/13/25 10:00 04/13/25 10:19 Enoxaparin Sodium (Lovenox) 40 mg DAILY SC 04/13/25 10:00 04/13/25 10:20 Ceftriaxone Sodium 50 ml @ 100 mls/hr DAILY@09 IV 04/14/25 09:00 Metronidazole 100 ml @ 100 mls/hr Q8HR IV 04/13/25 14:00 Acetaminophen (Tylenol Tablet) 650 mg Q6H PO 04/13/25 13:30 04/13/25 13:30 Ibuprofen (Motrin Tablet) 600 mg TID PO 04/13/25 14:00 04/13/25 14:00 Acetaminophen/ Hydrocodone Bitart ([place] 10/325MG Tab) 1 tab Q4HP PRN PO SEVERE PAIN (7-10 PAIN SCALE) 04/13/25 13:30 Acetaminophen/ Hydrocodone Bitart ([place] 5/325MG Tab) 1 tab Q4HPRN PRN PO MODERATE PAIN (4-6 PAIN SCALE) 04/13/25 13:30 Vital Signs Vital Signs Date Time Temp Pulse Resp B/P (MAP) Pulse Ox O2 Delivery O2 Flow Rate FiO2 04/13/25 12:58 97.7 104 18 139/85 (103) 91 97.7 04/13/25 04:40 Room Air* 0 21 Physical Exam General Appearance: Alert, Oriented X3, Cooperative, No acute distress HEENT: Atraumatic, PERRLA, EOMI, Mucous membrane moist/pink Respiratory: Clear to auscultation, Normal air movement Cardiovascular: Regular rate, Normal S1, Normal S2, No murmurs, no chest wall tenderness Abdominal: Soft obese with mild diffuse tenderness there was no rebound or guarding Extremities: No clubbing, No cyanosis, No edema, Normal pulses, No tenderness/swelling Skin: No rashes, No breakdown, No significant lesion Neuro: Normal gait, Normal speech, Strength at 5/5 X4 ext, Normal tone, Sensation intact, Cranial nerves 3-12 NL, Reflexes 2+ Psych/Mental Status: Mental status NL, Mood NL Labs/Diagnostic Data Labs Test 04/13/25 06:04 04/13/25 05:15 04/13/25 02:46 Range/Units Prothrombin Time 10.7 9.3-11.8 sec Prothrombin Time INR 1.01 0.9-1.15 Activated Partial Thromboplast Time 24.7 24.5-34.5 SEC D-Dimer, Quantitative 1.05 H 0.0-0.49 mg/L FEU Sodium Level 141 136-145 mmol/L Potassium Level 4.0 3.5-5.1 mmol/L Chloride Level 104 98-107 mmol/L Carbon Dioxide Level 27 20-31 mmol/L Anion Gap 10 5-15 Blood Urea Nitrogen 6 L 9-23 mg/dL Creatinine 0.89 0.550-1.02 mg/dL Glomerular Filtration Rate Calc 93 >90 mL/min BUN/Creatinine Ratio 6.7 L 10.0-20.0 Serum Glucose 124 H 74-106 mg/dL Lactic Acid Level 1.6 0.4-2.0 mmol/L Calcium Level 9.3 8.7-10.4 mg/dL Total Bilirubin 2.6 H 0.2-1.0 mg/dL Direct Bilirubin 1.6 H <0.3 mg/dL Aspartate Amino Transferase (AST) 359 H 13-40 U/L Alanine Aminotransferase (ALT) 419 H 7-40 U/L Alkaline Phosphatase 85 46-116 U/L Troponin I High Sensitivity < 3 L </=34 ng/L B-Type Natriuretic Peptide 7.42 0-100 pg/mL Total Protein 7.5 5.7-8.2 g/dL Albumin 4.6 3.2-4.8 g/dL Triglycerides Level 171 H < 150 mg/dL Cholesterol Level 197 < 200 mg/dL LDL Cholesterol 127 H < 100 mg/dL HDL Cholesterol 54 40-59 mg/dL Beta HCG, Quantitative < 0.0 L 1.5-4.2 mIU/mL Plasma/Serum Blood Alcohol < 3.0 <10 mg/dL Urine Color Yellow Yellow Urine Clarity Clear Clear Urine pH 5.0 5.0-9.0 Urine Specific [place] 1.011 1.001-1.035 Urine Protein Negative Negative Urine Ketones Negative Negative Urine Blood Negative Negative /uL Urine Nitrite Negative Negative Urine Bilirubin 1+ H Negative Urine Urobilinogen Normal Negative mg/dL Urine Leukocyte Esterase Negative Negative /uL Urine RBC <1 0 - 4 /hpf Urine Microscopic WBC 1 0-5 /HPF Urine Squamous Epithelial Cells Few <5 /hpf Urine Bacteria None seen None Seen /hpf Urine Glucose Normal Normal mg/dL Urine Test Negative Negative Urine Opiates Screen Neg NEGATIVE Urine Fentanyl Screen Neg NEGATIVE Urine Barbiturates Screen Neg NEGATIVE Urine Phencyclidine Screen Neg NEGATIVE Urine Amphetamines Screen Neg NEGATIVE Urine Benzodiazepines Screen Neg NEGATIVE Urine Cocaine Screen Neg NEGATIVE Urine Cannabinoids Screen Neg NEGATIVE White Blood Count 10.8 4.4-10.8 10^3/uL Red Blood Count 5.80 H 4.0-5.20 10^6/uL Hemoglobin 15.1 12.2-16.2 g/dL Hematocrit 43.7 36.0-46.0 % Mean Corpuscular Volume 75.4 L 80.0-100.0 fL Mean Corpuscular Hemoglobin 26.0 L 28.0-32.0 pg Mean Corpuscular Hemoglobin Concent 34.5 32.0-36.0 g/dL Red Cell Distribution Width 14.4 H 11.8-14.3 % Platelet Count 426 140-450 10^3/uL Mean Platelet Volume 7.5 6.9-10.8 fL Neutrophils (%) (Auto) 75.1 37.0-80.0 % Lymphocytes (%) (Auto) 20.3 10.0-50.0 % Monocytes (%) (Auto) 4.2 0.0-12.0 % Eosinophils (%) (Auto) 0.1 0.0-7.0 % Basophils (%) (Auto) 0.3 0.0-2.0 % Neutrophils # (Auto) 8.1 1.6-8.6 10 ^3/uL Lymphocytes # (Auto) 2.2 0.4-5.4 10 ^3/uL Monocytes # (Auto) 0.5 0-1.3 10 ^3/uL Eosinophils # (Auto) 0 0-0.8 10 ^3/uL Basophils # (Auto) 0 0-0.2 10 ^3/uL Nucleated Red Blood Cells 0.1 % Hemoglobin A1c 5.6 <5.7 % A1C Lipase > 3500 H 12-53 U/L MRCP IMPRESSION: Extensive peripancreatic edema and stranding consistent with acute pancreatitis. The edema extends into the retroperitoneum, inferior abdomen, paracolic gutters. This is new since this morning examination Cholelithiasis and pericholecystic edema. No evidence for choledocholithiasis. Normal caliber common bile duct. Problems(with codes): (1) Acute gallstone pancreatitis (2) Acute pancreatitis (3) Acute cholecystitis Plan/Recommendation Plan Keep NPO IV fluid hydration IV antibiotics Surgical consult is appreciated Patient is tentatively scheduled for laparoscopic cholecystectomy Continue to monitor labs Plan discussed with: Patient DREA WEI MD Apr 13, 2025 15:01
[2025-04-13] MEDS: HYDROcodone-ACET 5/325MG TAB PO PRN (16:18)
[2025-04-13] MEDS ORDERED: SEMA4INJ (17:55)
[2025-04-13] MEDS: HYDROcodone-ACET 10/325MG TAB PO PRN (20:27)
[2025-04-14] VITALS (7 sets, daily range): BP systolic 110–128; BP diastolic 69–142; PULSE 81–110; RESP 14–18; TEMP 97.4–98.1; O2SAT 94–95
[2025-04-14 06:03] LABS: Hemoglobin 15.6 g/dL (12.2-16.2)
[2025-04-14 06:07] LABS: Hematocrit 45.5 % (36.0-46.0); Mean Corpuscular Hemoglobin 26.2 pg (28.0-32.0); Mean Corpuscular Volume 76.3 fL (80.0-100.0); Nucleated Red Blood Cells % 0.3 %
[2025-04-14 06:25] LABS: Albumin 4.3 g/dL (3.2-4.8); Alkaline Phosphatase 82 U/L (46-116); Anion Gap 10 (5-15); BUN/Creatinine Ratio 7.2 (10.0-20.0); Calcium 8.9 mg/dL (8.7-10.4); Carbon Dioxide 27 mmol/L (20-31); Chloride 102 mmol/L (98-107); Glucose 106 mg/dL (74-106); Potassium 3.7 mmol/L (3.5-5.1); Sodium 139 mmol/L (136-145); Total Protein 7.0 g/dL (5.7-8.2)
[2025-04-14 06:57] LABS: Alanine Aminotransferase 350 U/L (7-40); Bilirubin, Direct 0.7 mg/dL (<0.3); Bilirubin, Total 1.4 mg/dL (0.2-1.0); Blood Urea Nitrogen 6 mg/dL (9-23)
[2025-04-14] MEDS ORDERED: MIDAZOLAM HCL 2MG/2ML 2ml VIAL (1mg/ml) ONE (07:26)
[2025-04-14] MEDS ORDERED: HYDROmorphone HCL 2 MG/ML VL/or syr ONE (07:26)
[2025-04-14] MEDS ORDERED: PROPOFOL 10 MG/ML 20 ML IV ONE (07:26)
[2025-04-14] MEDS ORDERED: LIDOCAINE 2% (LOCAL ANESTH.) PF 5ml SDV ONE (07:26)
[2025-04-14] MEDS ORDERED: fentaNYL CITRATE 100 MCG/2 ML VL ONE (07:26)
[2025-04-14] MEDS ORDERED: GLYCOPYRROLATE 0.2 MG/ML 1ML VIAL ONE (07:26)
[2025-04-14] MEDS ORDERED: ROCURONIUM 10MG/ML 10ML VIAL IV ONE (07:26)
[2025-04-14] MEDS ORDERED: ONDANSETRON HCL 4 MG/2 ML VIAL ONE (07:26)
[2025-04-14] MEDS: BUPIVACAINE HCL 0.25% P/F 10 ML VIAL ONE (08:00)
[2025-04-14] MEDS ORDERED: SUGAMMADEX 200mg/2ml Vial (100MG/ML) IV ONE ×2 (08:22→08:58)
[2025-04-14] MEDS ORDERED: KETAMINE 50mg/ML 10ml Vial 10 ML ONE (08:27)
[2025-04-14] MEDS ORDERED: ONDANSETRON HCL 4 MG/2 ML VIAL IV PRN (09:45)
[2025-04-14] MEDS ORDERED: HYDROMORPHONE HCL 1 MG/ML INJ IV PRN (10:15)
[2025-04-14] MEDS: ACETAMINOPHEN IV 1000 MG/100ML (10MG/ML) IV ONE (11:13)
--- NOTE | 2025-04-14 13:15 | DVHOP2 ---
Operative Report - 2 Report Details Date: 04/14/25 Preop Diagnosis: Gallstone pancreatitis Postop Diagnosis: Same Surgeon: Storm Cadena MD Anesthesiologist: Dr. Gomez Anesthesia: General Consent: The patient was informed of the risks and benefits of the procedure. These include but are not limited to complications of anesthesia, postoperative infection, incomplete relief of symptoms, recurrence of symptoms, damage to blood vessels, nerves and tendons, deep venous thrombosis, pulmonary embolism and possible need for repeat surgery in the future. Complications: None Estimated Blood Loss: 5 mL Findings: Inflammatory fluid through of the right upper quadrant, likely from the pancreatitis. Omental adhesions to the infundibulum of the gallbladder, pulling transverse colon up with it. Indications for Surgery: Gallstone pancreatitis Name of Procedure Performed Laparoscopic cholecystectomy Procedure Details Procedure Details: Upon arrival to the operating room the patient was transferred to the operating table and placed in the supine position with arms extended. General endotracheal anesthesia was induced. Time-out was observed. Patient was prepped and draped in the standard sterile surgical fashion with chlorhexidine. I then performed a curvilinear infraumbilical incision and carrying down the dissection to the fascia. I then utilized a Ramirez clamp to grasp the umbilical stalk and walked it down to its base. Once at the base I placed a 2nd Ramirez clamp at the midline fascia, elevating both Ramirez clamps I made a transverse fascial incision. I gained entry into the peritoneal cavity. I then placed a fascial retention suture of 0 Vicryl in a [id number] pattern. I then int roduced the Mars trocar and cavity was insufflated to 15 mmHg with toleration. I then inserted the camera and surveyed the entry site, no injuries. The patient was then placed in the reverse Trendelenburg [id number] position. I then placed 3 additional 5 mm trocars, at the epigastric area, right midclavicular line below the ribs, and right flank. I then directed my attention to the right upper quadrant and identified the liver and gallbladder. There was large amount of inflammatory fluid in the right upper quadrant. Fluid was suctioned, and some was sent for culture. I then placed a grasper at the fundus of the gallbladder and elevated the gallbladder cephalad and towards the right shoulder. Then I noted omentum adhered to the lower aspect of the gallbladder and it was pulling up the transverse colon. The omentum was carefully released from the gallbladder with a combination of blunt and electrocautery dissection. Once the infundibulum was visualized a 2nd grasper was used to grab the infundibulum and retracted laterally. I then proceeded to incise the peritoneum lining at the lower edge of the gallbladder on either side. At this point Calot triangle was exposed. I then fully skeletonized Calot triangle, identifying the cystic duct (enlarge), and the cystic artery, both entering the gallbladder. I then placed 2 proximal clips and 1 distal clip on the artery. Artery was transected. I then milked the contents of the cystic duct towards the gallbladder lumen, no stones felt that the duct. I then placed 3 proximal clips at the duct and 1 distal. The clips did not go all the way through to the other side of the duct since it was not enlarged. I transected the duct. I then placed a 0 Vicryl endoloop below the clips on the cystic duct. I then proceeded to use cautery to remove the gallbladder off of the liver bed. Gallbladder was then placed in the Endo-Catch bag and taken out of the peritoneal cavity through the umbilical port site. There was very minimal bile spillage from a tiny hole in the gallbladder that was made by the grasper. Right upper quadrant and gallbladder fossa was serially irrigated until effluent was clear. I then and inspected the gallbladder fossa for any bleeding there was none. Clips and endoloop were visualized again everything was intact. At this point the intraperitoneal portion of the surgery concluded. The 5 mm ports were removed under direct visualization, no bleeding from the abdominal wall. Peritoneal cavity was allowed to desufflate. All counts complete and correct. Previous fascial retention stitch was closed. All skin sites closed with 4-0 Monocryl and Dermabond. Marcaine 0.25% was used as local anesthetic. Patient tolerated the procedure well and was transferred to PACU in stable condition. Specimen: Gallbladder and contents Condition Stable Disposition Still a Patient STORM GOEL MD Apr 14, 2025 13:15
--- NOTE | 2025-04-14 16:26 | DVHPNRES ---
Progress Note Date Seen: Apr 14, 2025 Resident Creating Document: SAGE POST RESIDENT Medical Necessity Reason Pt with a Central, PICC or Fol: No Subjective Review of Systems Yfn Buck is a 25-year-old female with no significant past medical history who came to the ER with chief complaint of diffuse abdominal pain since 1 day. Patient mentions that the pain was mostly in the epigastric area, 10/10 in intensity radiating to the left shoulder slightly reduced on sitting up and leaning forward. The patient describes the pain as soreness. She also complained of nausea and 3 episodes of vomiting yesterday. She states that she only drank water and could not keep anything down. She mentions she has had similar symptoms of abdominal pain and vomiting multiple times in the last 1 year, which she thought was just heartburn and would take omeprazole for it. Patient started taking Ozempic since 1 year. She denies any fever and chills. She has no history of gallstones or decreased appetite the last few months. Past medical history: Prediabetes Past surgical history: None Social & Personal history: Lives at home with brother Smoking: Denies Alcohol: Rare consumption Drugs: Denies Allergies: No known allergies Patient seen and examined at bedside. Patient is alert and oriented to time, place person and responding to all questions. Patient is in mild distress due to abdominal pain. Eyes: No Pain, No Vision change, No Conjunctivae inflammation, No Eyelid inflammation, No Redness ENT: No Ear pain, No Ear discharge, No Nose pain, No Nose discharge, No Nose congestion, No Mouth pain, No Mouth swelling, No Throat pain, No Throat swelling Cardiovascular: No Chest Pain, No Palpitations, No Orthopnea, No Paroxysmal No Dyspnea, No Edema, No Lt Headedness Respiratory: No Cough, No Dry, No Shortness of breath, No SOB with exertion, No Wheezing, No Hemoptysis, No Pleuritic Pain, No Sputum Gastrointestinal: Nausea, No Vomiting, Abdominal Pain, No Diarrhea, No Constipation, No Melena, No Hematochezia Genitourinary: No Dysuria, No Frequency, No Incontinence, No Hematuria, No Retention 04/14- the patient was seen at bedside. The patient had just come back from the surgery. Objective vital signs Vital Sign Date Time Temp Pulse Resp B/P (MAP) Pulse Ox O2 Delivery O2 Flow Rate FiO2 04/14/25 13:07 97.4 110 14 /142 94 97.4 04/14/25 10:40 Nasal Cannula 3.0 94 Total Intake and Output 04/13/25 04/13/25 04/14/25 15:00 23:00 07:00 Intake Total 0 ml Balance 0 ml medications Current Medications Medications Dose Ordered Sig/Humza Route Start Time Stop Time Status Last Admin Dose Admin Ondansetron HCl 4 mg Q4HP PRN IV 04/13/25 04:45 04/13/25 10:11 4 MG Morphine Sulfate 2 mg Q4HPRN PRN IV 04/13/25 04:45 Hold 04/13/25 10:12 2 MG Lactated Ringer's 1,000 ml @ 180 mls/hr Q5H34M IV 04/13/25 05:15 04/14/25 11:56 180 MLS/HR Pantoprazole Sodium 40 mg DAILY IV 04/13/25 10:00 04/14/25 11:55 40 MG Enoxaparin Sodium 40 mg DAILY SC 04/13/25 10:00 04/14/25 11:55 40 MG Ceftriaxone Sodium 50 ml @ 100 mls/hr DAILY@09 IV 04/14/25 09:00 Metronidazole 100 ml @ 100 mls/hr Q8HR IV 04/13/25 14:00 04/14/25 14:08 100 MLS/HR Acetaminophen 650 mg Q6H PO 04/13/25 13:30 Hold 04/13/25 13:30 650 MG Ibuprofen 600 mg TID PO 04/13/25 14:00 04/14/25 14:08 600 MG Acetaminophen/ Hydrocodone Bitart 1 tab Q4HP PRN PO 04/13/25 13:30 04/14/25 01:37 1 TAB Acetaminophen/ Hydrocodone Bitart 1 tab Q4HPRN PRN PO 04/13/25 13:30 04/13/25 16:18 1 TAB Examination General Appearance: Cooperative. Well developed. Well nourished. NAD. Patient is in mild distress due to abdominal pain. Head Exam: Normal inspection Neck Exam: Normal inspection. Non-tender. Normal alignment Pulmonary/Respiratory: Chest non-tender. Clear bilateral breath sounds, no crackles, no wheezing. Cardiovascular/Chest: Regular rate and rhythm. No murmurs. No JVD. Peripheral Pulses: 2+ Radial (R). 2+ Radial (L). 2+ Pedal (R). 2+ Pedal (L) Abdominal Exam: Normal bowel sounds. Soft. obese abdomen, no visible veins, diffuse abdominal tenderness, No hepatospenomegaly. No masses Ankle Exam: Negative ankle edema Lower extremities: Negative lower extremity edema Neuro/Mental Status: A&O x4. Coherent. Thoughts/Psych: Normal thought pattern. Appropriate mood and affect. Good judgement and insight Skin Exam: Normal inspection. Normal color. Warm. Dry laboratory and microbiology Laboratory Tests 04/14/25 04:38 Test 04/14/25 04:38 Range/Units Serum Glucose 106 74-106 mg/dL Labs and/or images reviewed: Labs reviewed by me, Image(s) reviewed by me Problem List/Assessment/Plan Problem List/Assessment/Plan Acute pancreatitis likely gallstone induced s/p lap cholecystectomy Gallbladder stones Biliary obstruction Hyperbilirubinemia with transaminitis Hepatic steatosis Hepatomegaly -CT abdomen pelvis showed cholelithiasis and moderate gallbladder distention, hepatomegaly and hepatic steatosis -Liver Ultrasound showed Gallstones with gallbladder wall thickening. Acute cholecystitis can not be excluded. Free fluid around the pancreatic head. Pancreatitis not excluded. Hepatic steatosis/hepatomegaly. -MRCP showed Extensive peripancreatic edema and stranding consistent with acute pancreatitis. The edema extends into the retroperitoneum, inferior abdomen, paracolic gutters. This is new since this morning examination. Cholelithiasis and pericholecystic edema. -keep NPO -lipase 3500 on admission -GI consult -pain management -surgery on board Prediabetes HbA1c 5.6 The patient is on Ozempic Educate patient about healthy food habits Obesity, class 3, BMI 40.8 Educated patient on the need for weight reduction with healthy lifestyle modifications and diet changes PUD prophylaxis: Protonix DVT prophylaxis: Lovenox Goals of care: Full code, discussed for >23 minutes Plan discussed with patient Plan discussed with Dr. Gonsales Plan discussed with: Patient SAGE POST RESIDENT Apr 14, 2025 16:26
--- NOTE | 2025-04-14 22:01 | DVHPN2 ---
Progress Note - Dictate Date Seen: Apr 14, 2025 Medical Necessity Reason Pt with a Central, PICC or Fol: No Subjective Patient is S/P laparoscopic cholecystectomy today Patient had moderate pericholecystic inflammatory changes fluid from pancreatitis and omental adhesions Mild postop pain Liver enzymes on lipase trending down vital signs Vital Sign Date Time Temp Pulse Resp B/P (MAP) Pulse Ox O2 Delivery O2 Flow Rate FiO2 04/14/25 21:00 97.6 102 18 128/83 (98) 95 97.6 04/14/25 11:00 Room Air* 0 21 Total Intake and Output 04/13/25 04/13/25 04/14/25 15:00 23:00 07:00 Intake Total 0 ml Balance 0 ml medications Current Medications Medications Dose Ordered Sig/Humza Route Start Time Stop Time Status Last Admin Dose Admin Ondansetron HCl 4 mg Q4HP PRN IV 04/13/25 04:45 04/13/25 10:11 4 MG Morphine Sulfate 2 mg Q4HPRN PRN IV 04/13/25 04:45 Hold 04/13/25 10:12 2 MG Lactated Ringer's 1,000 ml @ 180 mls/hr Q5H34M IV 04/13/25 05:15 04/14/25 20:13 180 MLS/HR Pantoprazole Sodium 40 mg DAILY IV 04/13/25 10:00 04/14/25 11:55 40 MG Enoxaparin Sodium 40 mg DAILY SC 04/13/25 10:00 04/14/25 11:55 40 MG Ceftriaxone Sodium 50 ml @ 100 mls/hr DAILY@09 IV 04/14/25 09:00 Metronidazole 100 ml @ 100 mls/hr Q8HR IV 04/13/25 14:00 04/14/25 21:42 100 MLS/HR Acetaminophen 650 mg Q6H PO 04/13/25 13:30 Hold 04/13/25 13:30 650 MG Ibuprofen 600 mg TID PO 04/13/25 14:00 04/14/25 21:43 600 MG Acetaminophen/ Hydrocodone Bitart 1 tab Q4HP PRN PO 04/13/25 13:30 04/14/25 01:37 1 TAB Acetaminophen/ Hydrocodone Bitart 1 tab Q4HPRN PRN PO 04/13/25 13:30 04/13/25 16:18 1 TAB objective General Appearance: Alert, Oriented X3, Cooperative, No acute distress HEENT: Atraumatic, PERRLA, EOMI, Mucous membrane moist/pink Respiratory: Clear to auscultation, Normal air movement Cardiovascular: Regular rate, Normal S1, Normal S2, No murmurs, no chest wall tenderness Abdominal: Soft obese with mild diffuse tenderness there was no rebound or guarding; dressing dry Extremities: No clubbing, No cyanosis, No edema, Normal pulses, No tenderness/swelling Skin: No rashes, No breakdown, No significant lesion Neuro: Normal gait, Normal speech, Strength at 5/5 X4 ext, Normal tone, Sensation intact, Cranial nerves 3-12 NL, Reflexes 2+ Psych/Mental Status: Mental status NL, Mood NL laboratory and microbiology Laboratory Tests 04/14/25 04:38 Test 04/14/25 04:38 Range/Units Serum Glucose 106 74-106 mg/dL Problems(with codes): (1) Acute cholecystitis (2) Acute gallstone pancreatitis (3) Acute pancreatitis Prognosis Plan Patient is on a clear liquid diet Pain control IV antibiotics Check repeat labs in a.m. Plan discussed with: Patient, Other DREA WEI MD Apr 14, 2025 22:01
[2025-04-15 01:00] VITALS: BP_SYST 118; BP_SYST 121; BP_DIAS 76; BP_DIAS 80; PULSE 114; PULSE 65; RESP 18; RESP 20; TEMP 97.1; TEMP 97.2; O2SAT 94; O2SAT 99
[2025-04-15 05:00] VITALS: BP 121/69; PULSE 94; RESP 20; TEMP 97; O2SAT 97
[2025-04-15 05:33] LABS: Hematocrit 37.2 % (36.0-46.0); Hemoglobin 12.5 g/dL (12.2-16.2); Mean Corpuscular Hemoglobin 25.7 pg (28.0-32.0); Mean Corpuscular Volume 76.7 fL (80.0-100.0); Nucleated Red Blood Cells % 0.0 %
[2025-04-15 05:47] LABS: Albumin 3.5 g/dL (3.2-4.8); Alkaline Phosphatase 56 U/L (46-116); Anion Gap 8 (5-15); BUN/Creatinine Ratio 10.1 (10.0-20.0); Carbon Dioxide 28 mmol/L (20-31); Chloride 106 mmol/L (98-107); Glucose 98 mg/dL (74-106); Potassium 3.5 mmol/L (3.5-5.1); Sodium 142 mmol/L (136-145); Total Protein 5.9 g/dL (5.7-8.2)
[2025-04-15 05:48] LABS: Bilirubin, Total 0.7 mg/dL (0.2-1.0)
[2025-04-15 05:53] LABS: Alanine Aminotransferase 177 U/L (7-40); Bilirubin, Direct 0.3 mg/dL (<0.3); Blood Urea Nitrogen 7 mg/dL (9-23); Calcium 8.2 mg/dL (8.7-10.4)
[2025-04-15 07:08] LABS: Lipase 319 U/L (12-53)
[2025-04-15 08:00] VITALS: PULSE 98; RESP 18; O2SAT 95
[2025-04-15 09:23] VITALS: BP 115/76; PULSE 71; RESP 14; TEMP 97.7; O2SAT 100
--- NOTE | 2025-04-15 11:26 | DVHPN2 ---
Progress Note - Surgical Date Seen: Apr 15, 2025 Post op day Post op day: 1 Subjective Patient reports: Feels better (Patient feeling better today, abdominal pain much improved) Review of Systems: Deferred Objective Vital signs Vital Sign Date Time Temp Pulse Resp B/P (MAP) Pulse Ox O2 Delivery O2 Flow Rate FiO2 04/15/25 09:23 97.7 71 14 115/76 (89) 100 97.7 04/15/25 08:00 Room Air* 0 21 Total Intake and Output 04/14/25 04/14/25 04/15/25 15:00 23:00 07:00 Intake Total 100 ml 1780 ml 900 ml Balance 100 ml 1780 ml 900 ml Medications Current Medications Medications Dose Ordered Sig/Humza Route Start Time Stop Time Status Last Admin Dose Admin Ondansetron HCl 4 mg Q4HP PRN IV 04/13/25 04:45 04/13/25 10:11 4 MG Morphine Sulfate 2 mg Q4HPRN PRN IV 04/13/25 04:45 Hold 04/13/25 10:12 2 MG Lactated Ringer's 1,000 ml @ 180 mls/hr Q5H34M IV 04/13/25 05:15 04/15/25 06:04 180 MLS/HR Pantoprazole Sodium 40 mg DAILY IV 04/13/25 10:00 04/15/25 10:33 40 MG Enoxaparin Sodium 40 mg DAILY SC 04/13/25 10:00 04/15/25 10:34 40 MG Ceftriaxone Sodium 50 ml @ 100 mls/hr DAILY@09 IV 04/14/25 09:00 04/15/25 10:33 100 MLS/HR Metronidazole 100 ml @ 100 mls/hr Q8HR IV 04/13/25 14:00 04/15/25 05:21 100 MLS/HR Acetaminophen 650 mg Q6H PO 04/13/25 13:30 Hold 04/13/25 13:30 650 MG Ibuprofen 600 mg TID PO 04/13/25 14:00 04/15/25 05:25 600 MG Acetaminophen/ Hydrocodone Bitart 1 tab Q4HP PRN PO 04/13/25 13:30 04/14/25 01:37 1 TAB Acetaminophen/ Hydrocodone Bitart 1 tab Q4HPRN PRN PO 04/13/25 13:30 04/13/25 16:18 1 TAB Laboratory Laboratory Tests 04/15/25 04:31 Test 04/15/25 04:31 Range/Units Serum Glucose 98 74-106 mg/dL Microbiology Date/Time Source Procedure Growth Status 04/14/25 08:15 Other Abdominal Gram Stain Pending Resulted 04/14/25 08:15 Other Abdominal Anaerobic Culture Pending Resulted 04/14/25 08:15 Other Abdominal Aerobic Culture - Preliminary Resulted Examination: GENERAL:Normal, HEENT:Normal (No icterus), ABDOMEN:Normal (Nondistended, incision sites with skin glue in place, and without signs of infection, no abdominal tenderness) Labs and/or images reviewed: Labs reviewed by me (No elevation in bilirubin level, it continues to downtrend) Problem List/Assessment/Plan Assessment and Plan Mrs. Buck is a 25-year-old female who presented with gallstone pancreatitis, she is currently postop day 1 from laparoscopic cholecystectomy. She has done well this morning tolerating diet, very minimal abdominal pain. Bilirubin level continues to downtrend, no concern at this point for choledocholithiasis. From a surgery standpoint patient is cleared to go home but she would likely require additional hospital days due to her pancreatitis. 1. Low-fat diet 2. Follow up with Dr. Bates at surgery Clinic in 2 weeks post discharge 3.: Home pain regimen: Baseline pain control with Tylenol and or ibuprofen (follow clinical data abstractor's recommendation); [place] 5-325 mg p.o. every 6 hours p.r.n. pain severe 4. MiraLax 1 packet daily for 10 days 5. No heavy lifting over 10 lb for 6-8 weeks 6. May shower today, but no bathing or swimming for the next 2 weeks Plan discussed with Plan discussed with: Patient Visit Coding Surgery Date of Service if different f: Apr 15, 2025 Billing Provider: LINCOLN GOEL MD Surgery Visit Codes: [id number] INP/OBS CARE(HIGH) LINCOLN GOEL MD Apr 15, 2025 11:26
--- NOTE | 2025-04-15 12:09 | DVHDSRES ---
Discharge Summary Date of Admission Resident Creating Document: SAGE POST RESIDENT Apr 13, 2025 at 04:39 Date of Discharge: Apr 15, 2025 Admitting Diagnosis Acute pancreatitis Labs/Diagnostic Data: Laboratory Results Test 04/15/25 04:31 04/13/25 06:04 04/13/25 05:15 04/13/25 02:46 White Blood Count 15.4 10^3/uL (4.4-10.8) Red Blood Count 4.85 10^6/uL (4.0-5.20) Hemoglobin 12.5 g/dL (12.2-16.2) Hematocrit 37.2 % (36.0-46.0) Mean Corpuscular Volume 76.7 fL (80.0-100.0) Mean Corpuscular Hemoglobin 25.7 pg (28.0-32.0) Mean Corpuscular Hemoglobin Concent 33.5 g/dL (32.0-36.0) Red Cell Distribution Width 14.8 % (11.8-14.3) Platelet Count 330 10^3/uL (140-450) Mean Platelet Volume 7.6 fL (6.9-10.8) Neutrophils (%) (Auto) 76.7 % (37.0-80.0) Lymphocytes (%) (Auto) 15.3 % (10.0-50.0) Monocytes (%) (Auto) 7.9 % (0.0-12.0) Eosinophils (%) (Auto) 0.0 % (0.0-7.0) Basophils (%) (Auto) 0.1 % (0.0-2.0) Neutrophils # (Auto) 11.8 10 ^3/uL (1.6-8.6) Lymphocytes # (Auto) 2.3 10 ^3/uL (0.4-5.4) Monocytes # (Auto) 1.2 10 ^3/uL (0-1.3) Eosinophils # (Auto) 0 10 ^3/uL (0-0.8) Basophils # (Auto) 0 10 ^3/uL (0-0.2) Nucleated Red Blood Cells 0.0 % Sodium Level 142 mmol/L (136-145) Potassium Level 3.5 mmol/L (3.5-5.1) Chloride Level 106 mmol/L (98-107) Carbon Dioxide Level 28 mmol/L (20-31) Anion Gap 8 (5-15) Blood Urea Nitrogen 7 mg/dL (9-23) Creatinine 0.69 mg/dL (0.550-1.02) Glomerular Filtration Rate Calc 124 mL/min (>90) BUN/Creatinine Ratio 10.1 (10.0-20.0) Serum Glucose 98 mg/dL (74-106) Calcium Level 8.2 mg/dL (8.7-10.4) Total Bilirubin 0.7 mg/dL (0.2-1.0) Direct Bilirubin 0.3 mg/dL (<0.3) Aspartate Amino Transferase (AST) 45 U/L (13-40) Alanine Aminotransferase (ALT) 177 U/L (7-40) Alkaline Phosphatase 56 U/L (46-116) Total Protein 5.9 g/dL (5.7-8.2) Albumin 3.5 g/dL (3.2-4.8) Lipase 319 U/L (12-53) Prothrombin Time 10.7 sec (9.3-11.8) Prothrombin Time INR 1.01 (0.9-1.15) Activated Partial Thromboplast Time 24.7 SEC (24.5-34.5) D-Dimer, Quantitative 1.05 mg/L FEU (0.0-0.49) Lactic Acid Level 1.6 mmol/L (0.4-2.0) Troponin I High Sensitivity < 3 ng/L (</=34) B-Type Natriuretic Peptide 7.42 pg/mL (0-100) Triglycerides Level 171 mg/dL (< 150) Cholesterol Level 197 mg/dL (< 200) LDL Cholesterol 127 mg/dL (< 100) HDL Cholesterol 54 mg/dL (40-59) Beta HCG, Quantitative < 0.0 mIU/mL (1.5-4.2) Plasma/Serum Blood Alcohol < 3.0 mg/dL (<10) Urine Color Yellow (Yellow) Urine Clarity Clear (Clear) Urine pH 5.0 (5.0-9.0) Urine Specific [place] 1.011 (1.001-1.035) Urine Protein Negative (Negative) Urine Ketones Negative (Negative) Urine Blood Negative /uL (Negative) Urine Nitrite Negative (Negative) Urine Bilirubin 1+ (Negative) Urine Urobilinogen Normal mg/dL (Negative) Urine Leukocyte Esterase Negative /uL (Negative) Urine RBC <1 /hpf (0 - 4) Urine Microscopic WBC 1 /HPF (0-5) Urine Squamous Epithelial Cells Few /hpf (<5) Urine Bacteria None seen /hpf (None Seen) Urine Glucose Normal mg/dL (Normal) Urine Test Negative (Negative) Urine Opiates Screen Neg (NEGATIVE) Urine Fentanyl Screen Neg (NEGATIVE) Urine Barbiturates Screen Neg (NEGATIVE) Urine Phencyclidine Screen Neg (NEGATIVE) Urine Amphetamines Screen Neg (NEGATIVE) Urine Benzodiazepines Screen Neg (NEGATIVE) Urine Cocaine Screen Neg (NEGATIVE) Urine Cannabinoids Screen Neg (NEGATIVE) Hemoglobin A1c 5.6 % A1C (<5.7) Other Laboratory Tests 04/15/25 04:31 Brief Hx & Hospital Course: Nicholas Buck is a 25-year-old female with no significant past medical history who came to the ER with chief complaint of diffuse abdominal pain since 1 day. Patient mentions that the pain was mostly in the epigastric area, 10/10 in intensity radiating to the left shoulder slightly reduced on sitting up and leaning forward. The patient describes the pain as soreness. She also complained of nausea and 3 episodes of vomiting yesterday. She states that she only drank water and could not keep anything down. She mentions she has had similar symptoms of abdominal pain and vomiting multiple times in the last 1 year, which she thought was just heartburn and would take omeprazole for it. Patient started taking Ozempic since 1 year. She denies any fever and chills. She has no history of gallstones or decreased appetite the last few months. Initial lab workup reveale serum lipase >3000, transaminitis with serum AST 335, ALT 374, total bilirubin 2.2. MRCP revealedExtensive peripancreatic edema and stranding consistent with acute pancreatitis. The edema extends into the retroperitoneum, inferior abdomen, paracolic gutters. This is new since this morning examination. Cholelithiasis and pericholecystic edema.No evidence for choledocholithiasis. Normal caliber common bile duct. CT abdomen and pelvis- Cholelithiasis and moderate gallbladder distention.Hepatomegaly and hepatic steatosis. Liver ultrasound- Gallstones with gallbladder wall thickening. Acute cholecystitis can not be excluded. Free fluid around the pancreatic head. Pancreatitis not excluded. Hepatic steatosis/hepatomegaly. Patient had laparoscopic cholecystectomy on 04/14/2025. Post surgery patient tolerating liquid diet well. Patient's pain resolved following surgery. Patient is being discharged home with the full liquid diet for 5 days and gradually advanced. Patient was advised to take ibuprofen 400 mg q.6h PRN, pantoprazole 40 mg p.o. daily, patient was also advised to follow up with the primary care physician in 1 week with CBC, CMP and also to follow up with the surgeon in 1-2 weeks. Patient meds were sent to the pharmacy electronically. Patient was hemodynamically stable on discharge. Consults/Reason for consult [place] [id number] Ph: [phone] DIAGNOSTIC IMAGING Diagnostic Imaging Report : [id number] Signed PATIENT: NICHOLAS BUCK ACCT: [id number] UNIT: [id number] : 2000 LOC: ER ROOM / BED: / AGE / SEX: 25 / F ADM STATUS: REG ER SERVICE 0242 ORDERING PHYSICIAN: KEO SPARROW MD PROCEDURE(s): ABPL - CT AB PEL WO CON-NO ORAL OR IV REASON: Right upper quadrant abdominal pain ORDER NUMBER(s): [id number], ACCESSION NUMBER(s): [id number] Exam: CT CT AB PEL WO CON-NO ORAL OR IV History: Right upper quadrant abdominal pain Comparison Study: None Technique: Multidetector spiral CT of the abdomen was performed from lung bases to pubic symphysis. Imaging was performed without IV contrast. Axial, coronal and sagittal multiplanar reformats were obtained from the axial data set by the technologist. Radiation Dose : 1. Abdomen/Pelvis: CTDIvol 26.17 mGy, DLP 1872.2 mGy*cm. Findings: Evaluation of solid organs is limited due to lack of intravenous contrast use. Lung Bases: No acute or significant lung base finding. Normal heart size. No pleural or pericardial effusion. Liver: The liver is enlarged, measuring 20.6 cm in craniocaudal dimension. Hepatic steatosis. No focal lesions. Gallbladder and Biliary Tree: Cholelithiasis and moderate gallbladder distention. Spleen: Unremarkable Pancreas: The pancreas is grossly normal in appearance. Adrenal Glands: Unremarkable Kidneys: Kidneys are grossly normal without calculi or hydronephrosis. Bladder: Grossly unremarkable for degree of distention. Bowel: Small sliding-type hiatal hernia. The stomach is grossly normal in appearance. Small bowel and colon are normal in caliber and distribution. The appendix is normal. Ascites: Absent Lymphadenopathy: No mesenteric, retroperitoneal or periportal lymphadenopathy. Abdominal Wall and Mesentery: Unremarkable. Vasculature: The visualized abdominal aorta is normal in size and caliber. Evaluation of abdominal and pelvic vessels is limited due to lack of intravenous contrast. Pelvic Organs: Unremarkable Musculoskeletal: No aggressive focal bony lesions, acute fractures or dislocation. IMPRESSION: 1. Cholelithiasis and moderate gallbladder distention. 2. Hepatomegaly and hepatic steatosis. Radiation optimization: All CT scans at this facility use at least one of these dose optimization techniques: automated exposure control mA and/or kV adjustment per patient size (includes targeted exams where dose is matched to clinical indication) or iterative reconstruction. ATED BY: MERLIN MAURICIO MD DICTATED DATE/TIME: 04/13/25329 SIGNED BY: MERLIN MAURICIO MD SIGNED DATE/TIME: 04/13/25329 CC: [place] [id number] Ph: [phone] DIAGNOSTIC IMAGING Diagnostic Imaging Report : [id number] Signed PATIENT: NICHOLAS BUCK ACCT: [id number] UNIT: [id number] : 2000 [facility]GE / SEX: 25 / F ADM STATUS: ADM IN SERVICE 0512 ORDERING PHYSICIAN: JENNIFER BARKLEY RESIDENT PROCEDURE(s): LIVUS - LIVER REASON: pancreatitis ORDER NUMBER(s): [id number], ACCESSION NUMBER(s): [id number] INDICATION: pancreatitis TECHNIQUE: Multiple real-time sonographic images of the abdomen were obtained. COMPARISON: None FINDINGS: The liver is heterogeneous in echogenicity. The liver measures 18cm. No intrahepatic biliary ductal dilatation is noted. The gallbladder wall measures 0.4 cm and is unremarkable. No gallstones or sludge is seen. The common duct measures 0.7 cm and is unremarkable. No pericholecystic fluid is noted. The right kidney measures 11cm. No hydronephrosis. The left kidney measures cm. No hydronephrosis. The pancreas is not well visualized due to obscuration from bowel gas. The visualized portions of the IVC and aorta are grossly unremarkable. IMPRESSION: Gallstones with gallbladder wall thickening. Acute cholecystitis can not be excluded. Free fluid around the pancreatic head. Pancreatitis not excluded. Hepatic steatosis/hepatomegaly. ATED BY: FLAVIO SOLIS MD DICTATED DATE/TIME: 04/13/25912 SIGNED BY: FLAVIO SOLIS MD SIGNED DATE/TIME: 04/13/25912 CC: [place] [id number] Ph: [phone] DIAGNOSTIC IMAGING Diagnostic Imaging Report : [id number] Signed PATIENT: NICHOLAS BUCK ACCT: [id number] UNIT: [id number] : 2000 [facility]GE / SEX: 25 / F ADM STATUS: ADM IN SERVICE 1058 ORDERING PHYSICIAN: SAGE POST RESIDENT PROCEDURE(s): MRCP - MRCP MRI REASON: ?acute cholecystitis/choledocholithiasis ORDER NUMBER(s): [id number], ACCESSION NUMBER(s): [id number] PROCEDURE: MRI MRCP MRI Indication: acute cholecystitis/choledocholithiasis COMPARISON: 04/13/2025 TECHNIQUE: Multiplanar multisequence images of the abdomen are obtianed per MRCP protocol. FINDINGS: Adrenal glands unremarkable. Extensive peripancreatic edema extending into the retroperitoneum, lower abdomen, paracolic gutters. Cholelithiasis. Pericholecystic edema. No T2 hyperintense lesions within the liver. Normal caliber common bile duct measuring 4 mm. No definitive choledocholithiasis identified. Pancreatic duct nonvisualized, is nondilated. Hepatosplenomegaly. Kidneys demonstrate no hydronephrosis. Stomach is partially distended. Small bowel loops are normal in caliber. IMPRESSION: Extensive peripancreatic edema and stranding consistent with acute pancreatitis. The edema extends into the retroperitoneum, inferior abdomen, paracolic gutters. This is new since this morning examination Cholelithiasis and pericholecystic edema. No evidence for choledocholithiasis. Normal caliber common bile duct. ATED BY: DIANA SANDHU MD DICTATED DATE/TIME: 04/13/251310 SIGNED BY: DIANA SANDHU MD SIGNED DATE/TIME: 04/13/251310 CC: Operations or Procedures Patient: NICHOLAS BUCK Acct: [id number] : 2000 Loc: [facility] Age/Sex: 25/F Room: [facility] / Bed: B Attending Phy: SAGE POST RESIDENT Operative Report - 2 Report Details Date: 04/14/25 Preop Diagnosis: Gallstone pancreatitis Postop Diagnosis: Same Surgeon: Storm Cadena MD Anesthesiologist: Dr. Gomez Anesthesia: General Consent: The patient was informed of the risks and benefits of the procedure. These include but are not limited to complications of anesthesia, postoperative infection, incomplete relief of symptoms, recurrence of symptoms, damage to blood vessels, nerves and tendons, deep venous thrombosis, pulmonary embolism and possible need for repeat surgery in the future. Complications: None Estimated Blood Loss: 5 mL Findings: Inflammatory fluid through of the right upper quadrant, likely from the pancreatitis. Omental adhesions to the infundibulum of the gallbladder, pulling transverse colon up with it. Indications for Surgery: Gallstone pancreatitis Name of Procedure Performed Laparoscopic cholecystectomy Procedure Details Procedure Details: Upon arrival to the operating room the patient was transferred to the operating table and placed in the supine position with arms extended. General endotracheal anesthesia was induced. Time-out was observed. Patient was prepped and draped in the standard sterile surgical fashion with chlorhexidine. I then performed a curvilinear infraumbilical incision and carrying down the dissection to the fascia. I then utilized a Ramirez clamp to grasp the umbilical stalk and walked it down to its base. Once at the base I placed a 2nd Ramirez clamp at the midline fascia, elevating both Ramirez clamps I made a transverse fascial incision. I gained entry into the peritoneal cavity. I then placed a fascial retention suture of 0 Vicryl in a doehci-[id number] pattern. I then introduced the Mars trocar and cavity was insufflated to 15 mmHg with toleration. I then inserted the camera and surveyed the entry site, no injuries. The patient was then placed in the reverse Trendelenburg navco-fujd-pt position. I then placed 3 additional 5 mm trocars, at the epigastric area, right midclavicular line below the ribs, and right flank. I then directed my attention to the right upper quadrant and identified the liver and gallbladder. There was large amount of inflammatory fluid in the right upper quadrant. Fluid was suctioned, and some was sent for culture. I then placed a grasper at the fundus of the gallbladder and elevated the gallbladder cephalad and towards the right shoulder. Then I noted omentum adhered to the lower aspect of the gallbladder and it was pulling up the transverse colon. The omentum was carefully released from the gallbladder with a combination of blunt and electrocautery dissection. Once the infundibulum was visualized a 2nd grasper was used to grab the infundibulum and retracted laterally. I then proceeded to incise the peritoneum lining at the lower edge of the gallbladder on either side. At this point Calot triangle was exposed. I then fully skeletonized Calot triangle, identifying the cystic duct (enlarge), and the cystic artery, both entering the gallbladder. I then placed 2 proximal clips and 1 distal clip on the artery. Artery was transected. I then milked the contents of the cystic duct towards the gallbladder lumen, no stones felt that the duct. I then placed 3 proximal clips at the duct and 1 distal. The clips did not go all the way through to the other side of the duct since it was not enlarged. I transected the duct. I then placed a 0 Vicryl endoloop below the clips on the cystic duct. I then proceeded to use cautery to remove the gallbladder off of the liver bed. Gallbladder was then placed in the Endo-Catch bag and taken out of the peritoneal cavity through the umbilical port site. There was very minimal bile spillage from a tiny hole in the gallbladder that was made by the grasper. Right upper quadrant and gallbladder fossa was serially irrigated until effluent was clear. I then and inspected the gallbladder fossa for any bleeding there was none. Clips and endoloop were visualized again everything was intact. At this point the intraperitoneal portion of the surgery concluded. The 5 mm ports were removed under direct visualization, no bleeding from the abdominal wall. Peritoneal cavity was allowed to desufflate. All counts complete and correct. Previous fascial retention stitch was closed. All skin sites closed with 4-0 Monocryl and Dermabond. Marcaine 0.25% was used as local anesthetic. Patient tolerated the procedure well and was transferred to PACU in stable condition. Specimen: Gallbladder and contents Condition Stable Disposition 2 Still a Patient STORM GOEL MD Apr 14, 2025 13:15 DICTATED BY:STORM GOEL MD DICTATED DATE/TIME:04/14/25 1315 ELECTRONICALLY SIGNED BY:STORM GOEL MD 04/14/25 1315 ELECTRONICALLY CO-SIGNED BY: Condition at Discharge: Stable Final Diagnosis/Problems List Acute pancreatitis likely gallstone induced s/p lap cholecystectomy Gallbladder stones Biliary obstruction Hyperbilirubinemia with transaminitis Hepatic steatosis Hepatomegaly Prediabetes Obesity, class 3, BMI 40.8 Discharge Disposition: Home Discharge Instruct/Medications Diet: See Comment Diet comment: Full liquid diet for 5 days then gradually advance as tolerated Follow Up/Referral: Follow up with the primary care physician in 1-2 weeks with CBC, CMP Please follow up with the surgeon in 1-2 weeks with the lab reports Medications: Ibuprofen 400 mg q.6h PRN Pantoprazole 40 mg p.o. daily Scheduled Pantoprazole Sodium Sesquihydr (Pantoprazole Sodium), 40 MG PO DAILY Miscellaneous Medications Semaglutide (Ozempic), (Reported) Discharge Statement: "Patient was advised to return to the ER or call 911 if any headaches, dizziness, shortness of breath, chest pain, abdominal pain, bleeding, fevers, or worsening of medical condition. Patient was counseled about treatment plan, medications, possible side effects, patientverbalized understanding. All questions were answered to the best of my ability. This discharge took greater then 30 minutes in planning, reviewing documentation, counseling the patient, and discussing with other team members." ASSESSMENT ASSESSMENT Assessment Same MAX RODRIGUEZ RESIDENT Apr 15, 2025 12:09
[2025-04-15] MEDS ORDERED: PANT40T PO (12:13)
[2025-04-15 12:30] VITALS: BP 146/86; PULSE 101; RESP 16; TEMP 97.7; O2SAT 90
[2025-04-15 12:35] VITALS: BP 115/76; PULSE 71; RESP 14; TEMP 97.7; O2SAT 100
--- NOTE | 2025-04-15 21:31 | DVHPN2 ---
Progress Note - Dictate Date Seen: Apr 15, 2025 (Late entryPatient seen at 11:00 a.m.) Medical Necessity Reason Pt with a Central, PICC or Fol: No Subjective Patient Post op # 1 S/P laparoscopic cholecystectomy Patient had moderate pericholecystic inflammatory changes fluid from pancreatitis and omental adhesions Mild postop pain Liver enzymes on lipase trending down Patient is awake alert and feels better, abdominal pain is improving vital signs Vital Sign Date Time Temp Pulse Resp B/P (MAP) Pulse Ox O2 Delivery O2 Flow Rate FiO2 04/15/25 12:35 97.7 71 14 100 04/15/25 12:30 146/86 (106) 04/15/25 08:00 Room Air* 0 21 Total Intake and Output 04/14/25 04/14/25 04/15/25 15:00 23:00 07:00 Intake Total 100 ml 1780 ml 900 ml Balance 100 ml 1780 ml 900 ml objective General Appearance: Alert, Oriented X3, Cooperative, No acute distress HEENT: Atraumatic, PERRLA, EOMI, Mucous membrane moist/pink Respiratory: Clear to auscultation, Normal air movement Cardiovascular: Regular rate, Normal S1, Normal S2, No murmurs, no chest wall tenderness Abdominal: Soft obese with mild diffuse tenderness there was no rebound or guarding; dressing dry Extremities: No clubbing, No cyanosis, No edema, Normal pulses, No tenderness/swelling Skin: No rashes, No breakdown, No significant lesion Neuro: Normal gait, Normal speech, Strength at 5/5 X4 ext, Normal tone, Sensation intact, Cranial nerves 3-12 NL, Reflexes 2+ Psych/Mental Status: Mental status NL, Mood NL laboratory and microbiology Laboratory Tests 04/15/25 04:31 Test 04/15/25 04:31 Range/Units Serum Glucose 98 74-106 mg/dL Problems(with codes): (1) Acute cholecystitis (2) Acute gallstone pancreatitis (3) Acute pancreatitis Prognosis Plan Discharge planning is in progress Advance diet slowly as tolerated Outpatient follow up with GI Services as needed Dietary Evaluation Review Recommendations by RD: Dietary education by RD Comments: 1) Encourage optimal PO intake 2) Advance to low-fat diet when medically feasible 3) Refer to outpatient RD for weight management 4) Follow-up with gastroenterology 5) Continue to monitor I&O, labs, and skin integrity Expected Outcomes/Goals: 1) appetite and labs to improve 2) diet to advance 3) gradual wt loss 4) f/u in 3-5 days Plan discussed with: Patient DREA WEI MD Apr 15, 2025 21:31
== END 2025-04-15 14:24 | disposition home or self-care (01) | DRG 263 ==
LOC: ER 02:32 → OVERFLOW 04:39 → WEST WING 22:11
PROVIDERS: ADMIT Internal Medicine Geriatric Medicine; ATTEND Internal Medicine Geriatric Medicine
PROC: 0FT44ZZ Resection of Gallbladder, Percutaneous Endoscopic Approach (ICD-10-PCS; principal; 2025-04-14 07:34)
DX: K85.10 Biliary acute pancreatitis without necrosis or infection (principal); R16.0 Hepatomegaly, not elsewhere classified; K80.01 Calculus of gallbladder with acute cholecystitis with obstruction; K76.0 Fatty (change of) liver, not elsewhere classified; E66.813 Obesity, class 3; R74.01 Elevation of levels of liver transaminase levels; K82.8 Other specified diseases of gallbladder; R73.03 Prediabetes; E80.6 Other disorders of bilirubin metabolism; Z68.41 Body mass index [BMI] 40.0-44.9, adult; Z79.899 Other long term (current) drug therapy
CPT/HCPCS: 36415; 74176; 74181; 76705; 80053; 80061; 80307; 80320; 81001; 81025; 82248; 83036; 83605; 83690; 83880; 84484; 84702; 85025; 85379; 85610; 85730; 86850; 86900; 86901; 87070; 87075; 87205; G0378; J0131; J0694; J1100; J1885; J2003; J2250; J2405; J2470; J2704; J3490